=== PATIENT | male | born 1970 | race Caucasian/White ===

== ENCOUNTER 2016-06-16 00:10 | Emergency (ER) | payer MEDICARE, MEDICAID ==
[2016-06-16 00:28] VITALS: O2SAT 98
--- NOTE | 2016-06-16 01:08 | C.PDOC ---
History Of Present Illness 46 y.o male with history of back pain presents to ER with complaints of numbness and tingling sensation to bilateral feet and toes. Patient reports he was outside shoveling snow for couple hours. He went in home after shoveling at [address] houses in neighborhood, and felt odd sensation in his feet and called for ambulance. He also reported low back pain. Denies any chest pain, SOB, dizziness , weakness, but does admit to feeling tired. Time Seen by Provider: 06/16/16 00:33 Chief Complaint (Nursing): Back Pain History Per: Patient History/Exam Limitations: no limitations Onset/Duration Of Symptoms: Sudden Onset Quality Of Discomfort: "Pain", Other (numbness) Associated Symptoms: denies: Incontinence Past Medical History Reviewed: Historical Data, Nursing Documentation, Vital Signs Vital Signs: Last Vital Signs Temp 97.9 F 06/16/16 00:20 Pulse 93 H 06/16/16 00:20 Resp 16 06/16/16 00:20 BP 132/84 06/16/16 00:20 Pulse Ox 98 06/16/16 01:22 - Medical History PMH: Back Problems Surgical History: Back Surgery Family History: States: Unknown Family Hx - Social History Hx Alcohol Use: Yes Hx Substance Use: No Review Of Systems Constitutional: Negative for: Fever, Weakness, Malaise Eyes: Negative for: Vision Change ENT: Negative for: Throat Pain Cardiovascular: Negative for: Chest Pain, Palpitations Respiratory: Negative for: Cough, Shortness of Breath Gastrointestinal: Negative for: Nausea, Abdominal Pain Skin: Negative for: Rash, Bruising Neurological: Positive for: Numbness (in toes). Negative for: Headache, Dizziness Physical Exam - Physical Exam Appears: Non-toxic, No Acute Distress Skin: Normal Color, Warm, No Mottled, No Cyanotic Head: Atraumatic, Normacephalic Eye(s): bilateral: Normal Inspection, EOMI Nose: Normal Neck: Normal ROM Cardiovascular: Rhythm Regular, No Murmur Respiratory: Normal Breath Sounds, Rhonchi, No Wheezing Gastrointestinal/Abdominal: Soft, No Tenderness Back: No Vertebral Tenderness, Paraspinal Tenderness (mild lumbar tenderness), No Straight Leg Raising, Other (lumbar surgical scar) Extremity: Normal ROM, No Tenderness, No Calf Tenderness, Capillary Refill (<2 seconds), No Swelling, No Other (socks are soaked and there is blanching erythema to distal toes and area is cold to touch. No cyanosis, blisters, numbness, ) Pulses: Left Dorsalis Pedis: Normal, Right Dorsalis Pedis: Normal Neurological/Psych: Oriented x3, Normal Speech, Normal Motor, Normal Sensation Gait: Steady ED Course And Treatment O2 Sat by Pulse Oximetry: 98 Medical Decision Making Medical Decision Makin y.o male with history of back problems and spinal surgery presents to ED with low back pain and numbness to toes after shoveling snow today. On exam patient has blanching erythema to distal toes and clothing was wet and cold. No cyanosis, blisters or tenderness to suggest frostbite. Wet clothing was removed and new dry socks and blankets provided. EKG obtained and reviewed showing NS at 85 bpm with normal axis and no ST changes. Patient offered analgesic and declined. Patient observed in ED and was sleeping comfortably. Upon reevaluation patient reports improvement of symptoms, sensation intact to toes and normal ROM to lower extremities, color and warmth normal to hands and feet. Patient is stable for discharge. Advise follow up with primary doctor or return to ER for any worsening symptoms Disposition Counseled Patient/Family Regarding: Diagnosis, Need For Followup - Disposition Referrals: [facility] [Outside] [facility] [Outside] [place] [facility] [Outside] Disposition: HOME/ ROUTINE Disposition Time: 01:35 Condition: STABLE Additional Instructions: Please follow up with your primary doctor or clinic in 2-5 days for further evaluation. Take any pain medications as needed. Return to the emergency department at any time if symptoms persist or worsen. You may call [facility] service for any assistance [phone]. Instructions: [place] (ED) - POA Present On Arrival: None - Clinical Impression Clinical Impression: Cold exposure, Low back pain
[2016-06-16 01:56] VITALS: TEMP 98.1
[2016-06-16 02:04] VITALS: BP 129/80; PULSE 88; RESP 19
--- NOTE | 2016-06-16 18:23 | CARD ---
APPROVED REPORT EKG Measurement Heart [id number] <Conclusion> Normal sinus rhythm Normal ECG
== END 2016-06-16 02:13 | disposition short-term general hospital (02) ==
LOC: C.ER 00:10
DX: M54.5 Low back pain (principal); T69.8XXA Other specified effects of reduced temperature, initial encounter; X31.XXXA Exposure to excessive natural cold, initial encounter; Y93.H1 Activity, digging, shoveling and raking; Y92.414 Local residential or business street as the place of occurrence of the external cause